=== PATIENT | male | born 1965 | race Caucasian/White ===

== ENCOUNTER 2024-10-13 06:16 | Day surgery (SDC) | payer OTHER, SELFPAY | END 2024-10-13 09:11 | disposition home or self-care (01) | LOC: GI 06:16 | PROVIDERS: ATTENDING PHYSICIAN Specialist; FAMILY PHYSICIAN Family Medicine | DX: Z12.11 Encounter for screening for malignant neoplasm of colon (principal); K64.8 Other hemorrhoids; K57.30 Diverticulosis of large intestine without perforation or abscess without bleeding; Z86.0101 Personal history of adenomatous and serrated colon polyps | CPT/HCPCS: G0105 ==

== ENCOUNTER 2025-02-23 19:25 | Emergency (ER) | payer OTHER, SELFPAY ==
[2025-02-23 19:30] VITALS: BP 180/103
[2025-02-23 19:53] LABS: % Basophils 0.5 % (0-2); % Eosinophils 0.7 % (0-6); % Immature Granulocytes 0.3 % (0-0.5); % Lymphocytes 29.7 % (20.5-51.1); % Neutrophils 61.8 % (42.2-75.2); Absolute Basophils 0.1 10^3/uL (0-0.2); Absolute Eosinophils 0.1 10^3/uL (0-0.7); Absolute Lymphocytes 2.8 10^3/uL (1.2-3.4); Absolute Monocytes 0.7 10^3/uL (0.1-0.6); Absolute Neutrophils 5.8 10^3/uL (1.4-6.5); Hematocrit 42.7 % (39.0-52.0); Hemoglobin 15.1 g/dL (13.0-18.0); Mean Corp Hgb Conc. 35.4 g/dL (33.0-37.0); Mean Corpuscular Hgb 30.8 pg (27.0-31.0); Mean Platelet Volume 10.3 fL (7.4-10.4); Nucleated Red Blood Cells % 0 % (-); Platelet Count 286 10^3/uL (130-400); Red Blood Cell Count 4.91 10^6/uL (4.70-6.10); Red Cell Dist. Width 12.6 % (11.5-14.5); White Blood Cell Count 9.4 10^3/uL (4.8-10.8)
[2025-02-23 20:05] LABS: ALT (SGPT) 29 U/L (0-50); AST (SGOT) 29 U/L (17-59); Albumin 4.5 g/dl (3.5-5.0); Alkaline Phosphatase 76 U/L (38-126); Blood Urea Nitrogen 15 mg/dl (9-20); Calcium 9.8 mg/dl (8.4-10.2); Carbon Dioxide 21 mmol/L (22-30); Chloride 103 mmol/L (98-107); Glucose 132 mg/dl (70-99); Potassium 3.6 mmol/L (3.5-5.1); Sodium 136 mmol/L (135-145); Total Bilirubin 0.5 mg/dl (0.2-1.3); Total Protein 7.4 g/dl (6.3-8.2); eGFR > 60.00
[2025-02-23 20:17] LABS: Troponin I < 0.012 ng/ml
[2025-02-23 22:30] VITALS: BP 166/74
--- NOTE | 2025-02-23 22:41 | ED.GENMED ---
History of Present Illness
General
Chief Complaint: Dizziness
Source: patient
Exam Limitations: none
Time Seen by Provider: 02/23/25 22:31
History of Present Illness
History of Present Illness:
See MDM
Past History
Past History
ED Past Medical History: Asthma and Other (Anxiety, kidney stones)
ED Past Surgical History: None
Social History
Tobacco: Non-smoker
Alcohol: Occasional
Personal:
Living: with family
Employment: Employed
Phy Exam
Physical Exam
Physical Exam:
See MDM
Scores
Heart Score for Chest Pain Patients
STEMI patient?: No
History: Slightly or Non-Suspicious
ECG: Normal
Age: >45 - <65 years
Risk Factors: 1 or 2 Risk Factors
Troponin: </= Normal Limit
Heart Score for Chest Pain Patients: 2
Heart Score Risk: 2.5% MACE over next 6 weeks
Course
Orders/Labs/Results
Orders:
Orders
02/23/25 19:26
ECG [Electrocardiogram (*1)] Urgent
Reason for Study: Chest Pain
02/23/25 19:27
EKG- Treatment ONCE
02/23/25 19:39
CBC/With Diff [Complete Blood Count/With Diff] Urgent
CMP [Comprehensive Metabolic Panel] Urgent
Troponin I Urgent
Abnormal Lab Results
02/23/25
19:39
Absolute Monos (auto) 0.7 H 10^3/uL
(0.1-0.6)
Carbon Dioxide 21 L mmol/L
(22-30)
Glucose 132 H mg/dl
(70-99)
02/23/25 19:39
02/23/25 19:39
Vital Signs
Initial and Last Documented VS:
Initial Vital Signs
Temp Pulse Resp BP Pulse Ox
98.7 F 100 20 180/103 100
02/23/25 19:30 02/23/25 19:30 02/23/25 19:30 02/23/25 19:30 02/23/25 19:30
Last Documented Vital Signs
Temp Pulse Resp BP Pulse Ox
98.7 F 89 16 166/74 99
02/23/25 19:30 02/23/25 22:30 02/23/25 22:30 02/23/25 22:30 02/23/25 22:30
MDM/Problems Addressed
Differential Diagnosis Includes:
HPI and MDM Narrative:
59-year-old male presenting for evaluation of chest discomfort. Patient does acknowledge that he has history of anxiety and has had multiple similar episodes in the past that actually improve with ambulating. Patient developed similar symptoms
earlier in the evening today. Patient sat down and started to get nervous. Patient decided come in for evaluation. Symptoms have already improved without intervention. Blood work and EKG done prior to my assessment. Troponin negative and EKG
nonischemic. Patient states he feels much better. Lungs are clear and heart regular rate and rhythm. No leg edema. He feels comfortable going home and will place on cardiac callback tracker. Patient has never received cardiac evaluation in the
past
Physical exam
General: Well appearing and non-toxic
HEENT: protecting airway
Neck: appears supple
CV: No evidence of cyanosis. Regular rate and rhythm
Resp: No accessory muscle use. Lungs clear
Abd: Non-distended
Extremities: No deformities. No leg edema
Neuro: alert
Psych: Normal affect
Skin: Intact
Problems Addressed including Acute and Chronic Conditions affecting care:
1. Chest discomfort
Acuity: acute
Prognosis: stable
Details: EKG and troponin negative. Symptoms improved without intervention. Symptoms not exertional
Differential Diagnosis (but not limited to): Noncardiac chest pain, anxiety
Testing considered: Chest x-ray but symptoms improved and lungs are clear
Drug therapy (if applicable): OTC meds, please see d/c instruction regarding Rx drugs
Amount and/or Complexity of Data Reviewed
Clinical info obtained from: Patient
External data reviewed: N/A
Labs I independently reviewed (but not limited to): Troponin normal
Radiology: N/A
Pulse Ox: not hypoxic
EKG independently reviewed: Sinus rhythm, normal axis, no STEMI
Plugger Man: N/A
Critical Care: N/A
Risk of Complication:
Social Determinants of health: Good social support
Discussed with other providers: N/A
Escalation of Care includes Admit/Obs: After being observed in the Emergency Department, pt stable for discharge.
Occasional wrong word or 'sound a like' substitutions may have occurred due to the inherent limitations of voice recognition software. Read the chart carefully and recognize, using context, where substitutions have occurred.
*Critical Care Note
Total Time (30-74mins, 75-104mins- exclusive of procedures): Not Applicable
ED Attending Note
-
Portions of this chart may have been created with voice recognition software.� Occasional wrong word or��sound alike� substitutions may have occurred due to the inherent limitations of voice recognition software.
Discharge Plan
Departure
Patient Disposition: Home (Routine Discharge)
Date of Disposition: 02/23/25
Time of Disposition: 22:52
Patient with high blood pressure during this ER visit?: Yes
Discharge Problem:
Chest pain
Instructions: Chest Pain CBC Follow Up, BLOOD PRESSURE
Prescriptions:
No Action
albuterol sulfate 1 PUFF HFA aerosol inhaler
1 puff inhalation PRN PRN (Reason: breathing)
beclomethasone dipropionate [Qvar] 8.7 GM aerosol
8.7 gm IH DAILY
Vit B Complex
1 tab PO DAILY
Vit D
1 tab PO DAILY
Referrals:
Nguyen De Paz MD [Active] -
Debra Narvaez MD [Family Provider] -
Activity Restrictions/Additional Instructions:
Please return for any worsening symptoms.
You may return at any time if you have further concerns.
Please follow up with your doctor at the first available appointment, preferably this week.
You were placed on the cardiac callback tracker. Someone from their office should call you in the next few days. If you do not hear from them in the next few days, please give them a call.
Thank you for choosing [facility].
Interventions
Interventions:
*Risk Screen - Suicide Last Done: 02/23/25 19:30
*General Assessment Last Done: 02/23/25 19:30
*Neglect/Abuse Screening Last Done: 02/23/25 19:30
*ED- Fall Risk Assessment Last Done: 02/23/25 22:34
*ED COVID-19 Vaccine History Last Done: 02/23/25 19:30
ED- Neurological Assessment Last Done: 02/23/25 22:34
ED- Cardiac Assessment Last Done: 02/23/25 22:34
ED Swallowing Screen Last Done: 02/23/25 22:34
Discharge Date and Time
Print Language: ANDORRAN
== END 2025-02-23 23:01 | disposition home or self-care (01) ==
LOC: EMR 19:25
PROVIDERS: Emergency Medicine; EMERGENCY PHYSICIAN Student in an Organized Health Care Education/Training Program; FAMILY PHYSICIAN Family Medicine
DX: R07.89 Other chest pain (principal); R03.0 Elevated blood-pressure reading, without diagnosis of hypertension
CPT/HCPCS: 99284; 80053; 84484; 85025; 93005